=== PATIENT | male | born 1950 | race Caucasian/White ===

== ENCOUNTER 2025-03-06 05:47 | Observation (INO) | payer MEDICARE, SELFPAY ==
--- OUTSIDE RECORDS SUMMARY | 2024-09-16 08:15 | XMS_ITS ---
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 Name Role Phone Concetta ANN, Nicolas Primary Care Provider Adonis Link Unavailable [phone] Encounters Encounter Location Date Provider Diagnosis [facility] [address] [place] [address] 09/16/2024 Adonis Small Plan Of Treatment No Information Progress Notes * Leonides CARTER EDOB:1950 ( 74 yo M)Acc No.[id number]:09/16/2024 Progress Note Patient: Leonides DELEON Provider: Fred Small DPM :1950 A ge:73 Y S ex:Male Date:09/16/2024 Address:[address] [place] [address], [address] [place], [place] [id number] Pcp:Nicolas Hylton MD Subjective: * Chief Complaints: * * Medical History: Objective: * Vitals: Assessment: Plan: * Treatment: * Images: * The named appointment provid er may or may not be the originator of this progress note, and it is not deemed complete until electronically signed by the appointment provider. Sign off status: Pending * Provider: Fred Small DPM Date: 0 09/16/2024 Generated for Printi ng/Fafarhatg/eTransmitting on: 06:56 AM EST
[2025-03-06] VITALS (11 sets, daily range): BP systolic 106–158; BP diastolic 42–67; PULSE 59–69; RESP 12–18; TEMP 36.2–36.8; O2SAT 95–98; BMI 36.5
--- NOTE | ~2025-03-06 | XR_ITS ---
EXAMINATION: XR CHEST CLINICAL INFORMATION: Eval for edema COMPARISON: None available. TECHNIQUE: Frontal view of the chest was obtained. FINDINGS: No significant abnormality is noted involving the heart, lungs, mediastinum, bony thorax or soft tissues. Mild degenerative changes of the spine and shoulders. XR/XR chest 1V IMPRESSION: No evidence for acute disease in the chest. Electronically signed by: Luana Bazan MD 03/06/2025 12:05 PM DEBRA
--- NOTE | ~2025-03-06 | US_ITS ---
EXAMINATION: US TRIPLEX LOWER EXTREMITY, BILATERAL CLINICAL INFORMATION: Bilateral lower extremity pain and swelling COMPARISON: None available. TECHNIQUE: Color-flow triplex imaging with spectral analysis and compression Doppler were performed on the bilateral lower extremities. FINDINGS: Respiratory variation, normal compression and augmented flow are noted throughout the bilateral lower extremities. The visualized common femoral vein, superficial femoral vein, profunda femoral vein, popliteal vein and midcalf peroneal and posterior tibial venous segments show no evidence of deep venous thrombosis bilaterally. There is no Melendez's cyst. US/US venous duplex LE BI IMPRESSION: No evidence of deep venous thrombosis involving the bilateral lower extremities. Electronically signed by: Ned Ga MD 03/06/2025 09:51 AM EST
--- NOTE | ~2025-03-06 | CT_ITS ---
EXAMINATION: CT ABDOMEN PELVIS WITHOUT IV CONTRAST HISTORY: transaminitis COMPARISON: There are no prior studies available for comparison. TECHNIQUE: CT scan of the abdomen and pelvis was performed without contrast using standard departmental protocol. Coronal and sagittal reformatted images were generated and reviewed. This CT exam was performed with one or more of the following dose reduction techniques: automated exposure control, adjustment of the mA and/or kV according to patient size, use of iterative reconstruction technique. DLP: 1125 mGy-cm FINDINGS: LOWER CHEST: The visualized lung bases are clear. There is no pleural effusion. Widened esophageal hiatus containing fat and a small amount of fluid. CARDIOVASCULATURE: The heart is normal in size. There is no pericardial effusion. Coronary artery and aortic valve calcification. LIVER: Lobular contour of the liver and prominent caudate lobe and left lobe suggestive of some cirrhosis. Low-attenuation areas in the liver. There is a 7 x 8 cm low-attenuation round lesion high in the dome of right lobe of the liver segment 8/7 axial image 16 series 3 worrisome for mass. Other more ill-defined low-attenuation areas in the right lobe, largest segment 5/6 measuring 9 cm for example axial image 31 series 3. Question fatty infiltration versus mass. Recommend follow-up liver MRI. GALLBLADDER / BILE DUCTS: Gallstones. The gallbladder is otherwise unremarkable. There is no intra or extrahepatic biliary ductal dilatation. SPLEEN: The spleen is normal in size and has an unremarkable unenhanced appearance. PANCREAS: Fatty infiltration of the pancreas. ADRENAL GLANDS: Small left adrenal calcification. This is most likely related to old trauma or infection. The adrenal glands otherwise normal. No nodule.55 KIDNEYS/RETROPERITONEUM: Small nonobstructing 3 mm stone in the lower pole of the right kidney. Question tiny 1 mm nonobstructing stone in the lower pole of the left kidney. 1.5 and 1 cm low-attenuation lesions in the upper and lower pole left kidney and 1.5 cm low-attenuation lesion in the lower pole right kidney. These are incompletely characterized but probably represent cysts. LYMPH NODES small cardiophrenic angle or anterior diaphragmatic lymph nodes. Small periportal and portacaval lymph nodes. Small bilateral inguinal lymph nodes. No enlarged lymph nodes. VASCULATURE: Atherosclerotic disease. No aneurysm. MESENTERY/PERITONEUM: Moderate amount of ascites. STOMACH: Normal SMALL BOWEL: The small bowel is normal in caliber. COLON: Diverticulosis of the colon. APPENDIX: Normal. URINARY BLADDER/PELVIC ORGANS: The urinary bladder is unremarkable. Prostate gland does not appear enlarged. BONES / SOFT TISSUES: Mild subcutaneous edema. Degenerative changes of the spine and hips. CT/CT abdomen pelvis wo IV con IMPRESSION: Cirrhotic appearing liver, splenomegaly and moderate amount of ascites. Heterogeneous attenuation of the liver with several low-attenuation areas questionable masses versus fatty infiltration. Follow-up liver MRI recommended. Gallstones. 3 mm nonobstructing right renal stone and question tiny 1 mm nonobstructing left renal. Bilateral low-attenuation renal lesions not accurately characterized but may represent cysts. Diverticulosis of the colon. Electronically signed by: Luana Bazan MD 03/06/2025 03:06 PM DEBRA
--- NOTE | 2025-03-06 06:17 | ECG_ITS ---
Test Reason : edema Blood Pressure : */* mmHG Vent. Rate : 63 BPM Atrial Rate : 63 BPM P-R Int : 198 ms QRS Dur : 94 ms QT Int : 440 ms P-R-T Axes : 61 19 19 degrees QTcB Int : 450 ms Normal sinus rhythm Normal ECG When compared with ECG of 24-Jul-2004 15:16, Incomplete right bundle branch block is no longer Present Referred By: Astrid Scott Electronically Signed By: DORA NEGRO
--- NOTE | 2025-03-06 06:19 | ED.EXTPRO ---
HPI - Extremity Problem General Chief complaint: Extremity Problem Stated complaint: swelling in lower extremities Time Seen by Provider: 03/06/25 06:19 Source: patient and old records reviewed Mode of arrival: ambulatory Limitations: no limitations History of Present Illness ED Provider: JOYCE BROWN Narrative: 74-year-old male with past medical history of diabetes, hypertension, hyperlipidemia, GERD who presents with complaint of bilateral swelling of both legs that started about 5-7 days ago. He states it started after he was hanging his legs down and sitting for a while giving a dog a bath. He denies any new chest pain, shortness of breath, orthopnea. Denies any trauma to the legs. States he has never had compression stockings. He denies any changes in urinary habits. He states he lives alone but he is able to care for himself. He is using a cane to walk. States he has not seen his doctor in 1 year. He complains a chronic lump on the left chest wall that he does not report has grown. MD Complaint: other (Leg swelling) Onset (ago): week(s) (1) Pain Consistency: constant Location: left, right and lower extremity Quality: aching Radiation: none Relieving factors: immobilization Exacerbating factors: weight bearing Associated symptoms: denies other symptoms Related Data Home Medications ?Medication ?Instructions ?Recorded ?Confirmed amlodipine 10 mg tablet 10 mg PO DAILY 03/06/25 03/06/25 aspirin 81 mg tablet 81 mg PO DAILY 03/06/25 03/06/25 fluoxetine 20 mg capsule 60 mg PO DAILY 03/06/25 03/06/25 gabapentin 300 mg capsule 900 mg PO BEDTIME 03/06/25 03/06/25 glipizide 10 mg tablet, extended 20 mg PO DAILY 03/06/25 03/06/25 release 24 hr hydrochlorothiazide 25 mg tablet 25 mg PO DAILY 03/06/25 03/06/25 insulin NPH isoph U-100 human 100 30 unit subcut DAILY@1800 03/06/25 03/06/25 unit/mL subcutaneous suspension (Novolin N NPH U-100 Insulin isophane) insulin NPH isoph U-100 human 100 60 unit subcut DAILY 03/06/25 03/06/25 unit/mL subcutaneous suspension (Novolin N NPH U-100 Insulin isophane) losartan 100 mg tablet 100 mg PO DAILY 03/06/25 03/06/25 metformin 1,000 mg tablet 1,000 mg PO BID 03/06/25 03/06/25 metoprolol succinate 25 mg 25 mg PO DAILY 03/06/25 03/06/25 tablet,extended release 24 hr omeprazole 40 mg capsule,delayed 40 mg PO DAILY 03/06/25 03/06/25 release pravastatin 40 mg tablet 40 mg PO DAILY 03/06/25 03/06/25 Allergies Allergy/AdvReac Type Severity Reaction Status Date / Time No Known Allergies Allergy Verified 03/06/25 05:59 Review of Systems Review of Systems: Yes all other systems are reviewed and are negative [facility] Past Medical History Attestation statement: The following information was validated with the patient. Source: old records reviewed Medical History Diabetes Hyperlipidemia GERD (gastroesophageal reflux disease) HTN (hypertension) Social History Social History Alcohol intake: former Smoked in Last 30 Days: No Use of substances other than those prescribed or required for medical reasons: No Advance Directives: No Advance Directives Information Provided: Yes Do you have a plan to hurt others: No Plan Physical Exam Vital Signs: Vital Signs: Last Vital Signs Temp 97.8 F 03/06/25 07:57 Pulse 61 03/06/25 07:57 Resp 14 03/06/25 07:57 BP 110/50 L 03/06/25 10:00 Pulse Ox 95 03/06/25 07:57 O2 Del Method Room Air 03/06/25 07:57 BMI result Body Mass Index 36.5 Appearance: Alert. Oriented X3. No acute distress. Lying flat in no distress Eyes: Pupils equal, round and reactive to light. ENT: Pharynx normal. Neck: Normal inspection. Neck supple. CVS: Normal heart rate and rhythm. Pulses normal. Respiratory: No respiratory distress. Breath sounds normal. Abdomen: Soft and nontender. Skin: Skin warm and dry. Normal skin color. Normal skin turgor. Extremities: No signs of cellulitis he has distal pulses intact but he has 1+ pitting edema of bilateral lower extremities. The compartments are soft and compressible. Neuro: Oriented X 3. No motor deficit. No sensory deficit. CN2-12 intact Course Course Course Narrative: 6:49 AM 03/06/2025 (JOYCE LOTT): Requesting records from [facility] 9:45 AM 03/06/2025 (JOYCE LOTT): Patient now states he has not had blood the last time it was done at the [facility] as an outpatient Reevaluation(s) Reevaluation #1: 10:41 AM 03/06/2025 (JOYCE LOTT): Labs from 2022 and 2023 show hemoglobin of 14.4 his creatinine has been 1.3 I am repeating his labs at this time see if there is any further drop he denies any GI bleed symptoms. Medical Decision Making Medical Decision Making [facility] Narrative: 74-year-old male with past medical history of diabetes, hypertension, hyperlipidemia, GERD who presents with complaint of lower extremity edema but he has no associated CHF symptoms such as orthopnea or shortness of breath. Has pulses intact and has no signs of infection on exam. His compartments are soft and compressible. At this time we are going to obtain EKG, basic labs, DVT study. If negative we will hold hydrochlorothiazide started on Lasix x3 days in order compression stockings. He is aware of the plan. States he feels he can care for himself at home. Differential Diagnosis Differential Diagnoses: The differential diagnosis associated with the presentation includes DVT, CHF, dependent edema, side effects of amlodipine Admission/Observation Consideration of admission/observation: Escalation of care including admission/observation considered His hemoglobin has not dropped but he definitely has AQUILINO from prior labs his BNP is elevated I am obtaining chest x-ray I suspect he probably has potential for volume overload given his edema he is on any diuretics at home anticipate he will get admitted for diuresis I plan to start on IV Lasix Lab Data [facility] Lab Attestation statement: I reviewed the patient's lab results. 03/06/25 11:18 03/06/25 11:18 Labs: Lab Results 03/06/25 03/06/25 Range/Units 06:15 11:18 WBC 5.5 6.3 (4.8-10.8) X10*3/uL RBC 3.40 L 3.65 L (4.60-5.80) X10*6/uL Hgb 9.9 L 10.6 L (14.0-18.0) g/dl Hct 32.4 L 35.0 L (42.0-52.0) % MCV 95.3 95.9 (80.0-98.0) fL MCH 29.1 29.0 (27.0-33.0) pg MCHC 30.6 L 30.3 L (31.0-36.0) g/dl RDW 16.2 H 16.3 H (11.0-16.0) % Plt Count 221 239 (160-400) X10*3/uL MPV 10.0 10.1 (9.4-12.4) fL Immature Gran % (Auto) 0.4 (0.0-0.4) % Neut % (Auto) 80.3 H (45-73) % Lymph % (Auto) 10.4 L (20-40) % [place] % (Auto) 8.4 (2-11) % Eos % (Auto) 0.0 (0-4) % Baso % (Auto) 0.5 (0-2) % Lymph # (Auto) 0.6 L (1.2-4.9) X10*3/uL [place] # (Auto) 0.5 (0.1-1.2) X10*3/uL Eos # (Auto) 0.0 (0.0-0.4) X10*3/uL Baso # (Auto) 0.0 (0.0-0.2) X10*3/uL Abs Immat Gran (auto) 0.02 (0.00-0.03) X10*3/uL Absolute Neuts (auto) 4.4 (2.0-8.3) x10*3/uL Absolute Nucleated RBC 0.000 0.000 (0.0-0.012) X10*3/uL Nucleated RBC % (auto) 0.0 0.0 (0.0-0.2) /100WBC Sodium 141 (135-145) mmol/L Potassium 5.0 (3.3-5.1) mmol/L Chloride 108 (96-108) mmol/L Carbon Dioxide 26 (22-29) mmol/L Anion Gap 12 (12-20) BUN 22 H (9-16) mg/dL Creatinine 1.74 H 1.80 H (0.5-1.4) mg/dL Estim Creat Clear Calc 48.8 47.1 Estimated GFR 39 37 Random Glucose 117 H (60-115) mg/dL Calcium 8.6 (8.4-10.2) mg/dL Magnesium 2.0 (1.6-2.6) mg/dL Total Bilirubin 1.1 H (0.0-1.0) mg/dL AST 127 H (5-37) U/L ALT 43 H (0-40) U/L Alkaline Phosphatase 463 H (39-117) U/L NT-Pro-B Natriuret Pep 881.5 H (<300) pg/mL Total Protein 7.1 (6.5-8.0) g/dL Albumin 3.3 L (3.5-5.0) g/dL TSH 5.07 H (0.32-4.0) uIU/mL Free T4 1.01 (0.71-1.85) ng/dL Independent Interpretation I performed an independent interpretation of an: EKG, Plain X-Ray and Ultrasound (No DVT) Interpretation: Rate: 63 Rhythm: Normal sinus rhythm [place]: Normal Normal P waves. Normal KEY. Normal QRS complex. ST T wave : Normal no ST-elevation qTC: 450 prior studies: No acute ischemia The study has been interpreted contemporaneously by me. . Radiology Impression Discussion of test interpretation with radiology: I have reviewed the radiologist's reading. External Record Review External record reviewed: Outpatient record Prescription Management I considered prescription management with: Other Discharge Plan Discharge Clinical Impression: Anemia, Acute kidney injury superimposed on CKD, Leg edema Patient Disposition: Admitted As Inpatient Print Language: Turkmen
[2025-03-06 06:21] LABS: MANUAL DIFF FLAG NO
[2025-03-06 06:23] LABS: Hematocrit 32.4 % (42.0-52.0); Hemoglobin 9.9 g/dl (14.0-18.0); Imm Gran Abs Auto 0.02 X10*3/uL (0.00-0.03); Imm Gran Pct Auto 0.4 % (0.0-0.4); Lymphocytes Absolute Auto 0.6 X10*3/uL (1.2-4.9); Mean Corpuscular HGB Conc 30.6 g/dl (31.0-36.0); Mean Corpuscular Hemoglobin 29.1 pg (27.0-33.0); Mean Corpuscular Volume 95.3 fL (80.0-98.0); NRBC Abs Auto 0.000 X10*3/uL (0.0-0.012); NRBC Pct Auto 0.0 /100WBC (0.0-0.2); Platelet Count 221 X10*3/uL (160-400); Red Blood Count 3.40 X10*6/uL (4.60-5.80); White Blood Count 5.5 X10*3/uL (4.8-10.8)
[2025-03-06 06:45] LABS: Alanine Aminotransferase 43 U/L (0-40); Albumin Level 3.3 g/dL (3.5-5.0); Alkaline Phosphatase 463 U/L (39-117); Anion Gap 12 (12-20); Aspartate Amino Transferase 127 U/L (5-37); Blood Urea Nitrogen 22 mg/dL (9-16); Calcium 8.6 mg/dL (8.4-10.2); Carbon Dioxide 26 mmol/L (22-29); Chloride 108 mmol/L (96-108); Creatinine Clr Calc Pharmacy 48.8; Estimated Glomerular Filt Rate 39; Magnesium 2.0 mg/dL (1.6-2.6); Potassium 5.0 mmol/L (3.3-5.1); Sodium 141 mmol/L (135-145); Total Protein 7.1 g/dL (6.5-8.0)
[2025-03-06 06:48] LABS: NT Pro B Type Natriuretic Pept 881.5 pg/mL (<300)
--- OUTSIDE RECORDS SUMMARY | 2025-03-06 06:57 | XMS_ITS | Patient Health Record ---
Author Organization 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 Name Role Phone Nicolas Hylton MD Primary Care Provider Adonis Link Unavailable [phone] Allergies Allergen (clinical drug ingredient) Drug/Non Drug Allergy documented on EMR Reaction Allergy Type Onset Date Status Seasonale Unknown Drug Allergy Active Reason For Referral No Information Medications Medication SIG (Take, Route, Frequency, Duration) Notes Start Date End Date Status Ammonium Lactate 12 % 1 application Exte rnally to affected areas of dry skin to feet except for between the toes Twice a day; Duration: 30 days Active Lantus 86 as directed Active metFORMIN HCl 500 MG 1 tablet with a horace l Orally Once a day; Duration: 30 day(s) Active Metoprolol Succinate 25 MG 1 capsule Orally Once a day; Duration: 30 day(s) Active Omeprazole 20 MG 1 capsule 30 minutes before morning meal Orally Once a day; Duration: 30 day(s) Active CeleXA Active Lisinopril 20 MG 1 tablet Orally Once a day; Duration: 30 day(s) Not-Virgilio ing FLUoxetine HCl 20 MG 1 tablet Orally Onc e a day; Duration: 30 day(s) Active Gabapentin 300 MG 1 capsule Orally Onc e a day; Duration: 30 day(s) Active glipiZIDE 10 MG 1 tablet 30 minutes before breakfast Orally Once a day; Duration: 30 day(s) Active Pravastatin Sodium 40 MG 1 tablet Orally Once a day; Duration: 30 day(s) Active amLODIPine Besylate 10 MG 1 tablet Orally Once a day 10mg Active Colcrys 0.6 MG 1 tablet Orally Up t o Four times a day; Duration: 5 days 08/21/2023 Active Rickey Aspirin EC Low Dose 81 MG 1 tablet Orally Once a day; Duration: 30 day(s) Active Immunizations Vaccine Route Administration Date Status Comme nts Influenza Unknown 03/08/2019 Administered Influenza Unknown 12/08/2019 Administered Influenza Unknown 01/07/2021 Administered Influenza Unknown 06/07/2022 Administered Influenza Unknown 12/08/2023 Administered COVID-19 Pfizer BioNTech Vaccine Unknown 01/07/2022 Administered 2020 unsure dates Social History Tobacco Use: Social History Observation Description Date Details (start date - stop date) Never Smoker NA - NA Tobacco use other than smoking: Question Answer Notes Are you an other tobacco user? No Tobacco Control (Standard) Question Answer Notes Tobacco use: Nonsmoker Additional Findings: Tobacco non-user Current no nsmoker AUDIT-C (Standard) Question Answer Notes Did you have a drink containing alcohol in the p ast year? No Points 0 Interpretation Negative Problems Problem Type SNOMED Code ICD Code Onset Dates Problem Status W/U Status Risk Notes Problem Acquired hammer toe of right foot (694708245362276 5) Other hammer toe(s) (acquired), right foot (M20.41) Active confirmed Problem Acquired hammer toe of left foot (175995341590047 3) Other hammer toe(s) (acquired), left foot (M20.42) Active confirmed Problem Polyneuropathy due to type 2 diabetes mellitus (200181250) Type 2 diabetes mellitus with diabetic polyneuropathy (E11.42) Active confirmed Problem Gout (50051799) Gout of right foot (M10.9) Active confirmed Rx drug management (4) Vital Signs Blood pressure diastolic 65 mm Hg 12/09/2024 Height 69.5 in 12/09/2024 Blood pressure systolic 130 mm Hg 12/09/2024 Weight 250 lbs 12/09/2024 BMI 36.39 kg/m2 12/09/2024 Procedures Procedure Date Ordered Date Performed Result Body Sit e 31800-BXWXIUD NAIL, 6 OR MORE 06/03/2024 N/A 77575-WBIZ SKIN LESIONS, OVER 4 06/03/2024 N/A 83233-IVTYVQI NAIL, 6 OR MORE 12/09/2024 N/A 36665-RIOA SKIN LESIONS, OVER 4 12/09/2024 N/A Encounters Encounter Location Date Provider Diagnosis [address] [address] 06/03/2024 Adonis Small Type 2 diabetes mellitus with diabetic polyneuropathy E11.42 ; Tinea unguium B35.1 ; Other hammer toe(s) (acquired), right foot M20.41 ; Other hammer toe(s) (acquired), left foot M20.42 and Xerosis of skin L85.[address] [address] 12/09/2024 Adonis Small Type 2 diabetes mellitus with diabetic polyneuropathy E11.42 ; Tinea unguium B35.1 and Xerosis of skin L85.[address] [address] 09/16/2024 Adonis Small [address] [address] 09/20/2024 Adonis Small Assessments Encounter Date Diagnosis (ICD Code) Assessment Notes Treatment Notes Treatment Clinical Notes Section Notes 06/03/2024 Type 2 diabetes mellitus with diabetic polyneuropathy (ICD-10 - E11.42) 06/03/2024 Tinea unguium (ICD-10 - B35.1) 12/09/2024 Type 2 diabetes mellitus with diabetic polyneuropathy (ICD-10 - E11.42) 12/09/2024 Tinea unguium (ICD-10 - B35.1) 12/09/2024 Xerosis of skin (ICD-10 - L85.3) 06/03/2024 Other hammer toe(s) (acquired), right foot (ICD-10 - M20.41) Patient Educated with: DIABETIC FOOT CARE INSTRUCTIONS. pdf (DIABETIC FOOT CARE INSTRUCTIONS. pdf) 06/03/2024 Other hammer toe(s) (acquired), left foot (ICD-10 - M20.42) 06/03/2024 Xerosis of skin (ICD-10 - L85.3) Plan Of Treatment Pending Test Test Name Order Date X ray : Foot, right 3V 08/21/2023 25570-WXIOMPQ NAIL, 6 OR MORE 11/20/2023 86695-VSULZQH NAIL, 6 OR MORE 02/19/2024 90923-IMHEUQQ NAIL, 6 OR MORE 06/03/2024 25029-PBNUHWE NAIL, 6 OR MORE 12/09/2024 54675-FRXNLIC NAIL, 6 OR MORE 05/13/2019 35359-JZMPIYX NAIL, 6 OR MORE 08/12/2019 17771-TKVEAHG NAIL, 6 OR MORE 12/02/2019 12677-VSOCEYA NAIL, 6 OR MORE 03/13/2020 82183-INGZDCP NAIL, 6 OR MORE 06/12/2020 37476-BAGUAVU NAIL, 6 OR MORE 09/11/2020 27605-SAPSDUX NAIL, 6 OR MORE 12/11/2020 24799-HMAQUVJ NAIL, 6 OR MORE 03/15/2021 37463-GPPGNIQ NAIL, 6 OR MORE 06/14/2021 92964-LRUKTPA NAIL, 6 OR MORE 09/17/2021 60206-SVZOVZY NAIL, 6 OR MORE 03/18/2022 22942-NKHXOCS NAIL, 6 OR MORE 06/17/2022 12739-SIULHWQ NAIL, 6 OR MORE 09/12/2022 12100-JBIXYJT NAIL, 6 OR MORE 12/05/2022 53633-OGGVFSR NAIL, 6 OR MORE 04/24/2023 03749-PIBELIJ NAIL, 6 OR MORE 08/21/2023 11352-Cwgqqesg Plate 12/05/2022 07918-Qkmtrbtd Plate 03/18/2022 73027-Uueokprw Plate 03/13/2020 07707-Znjnmhiw Plate 09/12/2022 53744-Glxohfhr Plate 11/20/2023 40369-Qdkcjwmw Plate 08/21/2023 06869-VFNP SKIN LESIONS, OVER 4 11/20/19 24 34003-WKGO SKIN LESIONS, OVER 4 06/04/19 25 37073-OLQH SKIN LESIONS, OVER 4 02/19/20 24 73449-BFLL SKIN LESIONS, OVER 4 12/10/19 88975-MZWN SKIN LESIONS, OVER 4 03/13/19 21 62438-NKAS SKIN LESIONS, OVER 4 12/02/19 20 41284-BIAU SKIN LESIONS, OVER 4 08/12/19 20 71599-OTNV SKIN LESIONS, OVER 4 05/13/19 20 41228-XCZC SKIN LESIONS, OVER 4 03/15/19 22 51464-NXPI SKIN LESIONS, OVER 4 12/12/19 21 14795-AVKF SKIN LESIONS, OVER 4 09/12/19 21 92837-VZPK SKIN LESIONS, OVER 4 06/13/19 21 32297-JJPH SKIN LESIONS, OVER 4 03/18/19 23 33058-VVCP SKIN LESIONS, OVER 4 06/18/19 23 94456-FWLG SKIN LESIONS, OVER 4 09/18/19 22 32408-GGEA SKIN LESIONS, OVER 4 06/15/19 22 92213-NKDV SKIN LESIONS, OVER 4 12/06/19 23 86062-UQYY SKIN LESIONS, OVER 4 09/13/19 23 23891-WTIG SKIN LESIONS, OVER 4 08/21/19 24 39886-ZAJS SKIN LESIONS, OVER 4 04/24/19 24 Insurance Providers Payer Name Payer Address Payer Phone Subscriber Number Group Number Insured Name Patient Relationship to Insured Coverage Start Date Coverage End Date Medicare National [employer] [address] [facility] [place] [address] [id number] Leonides Carter Self - patient is the insured [employer] [address] [place] [address] [phone] [id number] Leonides Carter Self - patient is the insured Medical (General) History Medical History History ICD Code Arthritis Depression type II diabetes High blood pressure CAD Reflux Sciatica Herniated disc x3 Gout Surgical History Surgery Date(Month/Year) colonoscopy x3 endoscopy
[2025-03-06 07:36] LABS: Free T4 (Free Thyroxine) 1.01 ng/dL (0.71-1.85)
--- NOTE | 2025-03-06 11:09 | PHA.MEDREC ---
Pharmacy Consult ? Medication Reconciliation Pharmacy has completed the medication reconciliation. Utilized list patient came with from [facility] to confirm medications, matches pharmacy claims.
[2025-03-06 11:28] LABS: Hematocrit 35.0 % (42.0-52.0); Hemoglobin 10.6 g/dl (14.0-18.0); Mean Corpuscular HGB Conc 30.3 g/dl (31.0-36.0); Mean Corpuscular Hemoglobin 29.0 pg (27.0-33.0); Mean Corpuscular Volume 95.9 fL (80.0-98.0); NRBC Abs Auto 0.000 X10*3/uL (0.0-0.012); NRBC Pct Auto 0.0 /100WBC (0.0-0.2); Platelet Count 239 X10*3/uL (160-400); Red Blood Count 3.65 X10*6/uL (4.60-5.80); White Blood Count 6.3 X10*3/uL (4.8-10.8)
[2025-03-06 11:41] LABS: Creatinine Clr Calc Pharmacy 47.1; Estimated Glomerular Filt Rate 37
[2025-03-06] MEDS: Furosemide 20 MG/2 ML VIAL IVPUSH ×2 (12:16→20:00)
--- NOTE | 2025-03-06 12:29 | PM.IMHP ---
History of Present Illness Date of Service: 03/06/25 Chief Complaint: Leg swelling 74-year-old man with history of hypertension presented to the ER with complaints of bilateral lower extremity edema over the last week. He reports that this comes and goes and he sometimes wears Adrian stockings. He reports that he does have high sodium rich diet. He denied chest pain, shortness breath, nausea, vomiting, diarrhea. He reports that it started after he was sitting with his legs hanging trying to give his dog a bath. He also reports that he generally sits with his legs hanging down and does not elevate them enough. In the ER. Venous Doppler ultrasound was negative for DVT. Chest x-ray was negative for consolidation or effusion. Patient received a dose of IV Lasix in the ED. He will be placed on observation for management of bilateral lower extremity edema Review of Systems Review of Systems: Denies any recent fever chills or decrease in appetite respiratory denies any shortness of breath or cough cardiovascular see HPI gastrointestinal denies any dysphagia abdominal pain nausea vomiting or diarrhea genitourinary denies any dysuria frequency or hematuria musculoskeletal denies any joint pain or swelling neuropsych denies any weakness or seizures all other systems reviewed are negative [facility] Medical History (Updated 03/06/25 @ 12:31 by Celestina Galvan NP) Subclinical hypothyroidism Obstructive sleep apnea Hiatal hernia Lumbar radiculopathy Diabetic neuropathy Depression Barretts esophagus Aortic stenosis Diabetes Hyperlipidemia GERD (gastroesophageal reflux disease) HTN (hypertension) Pertinent family history: Colon cancer Social History Alcohol intake: former Smoked in Last 30 Days: No Use of substances other than those prescribed or required for medical reasons: No Advance Directives: No Advance Directives Information Provided: Yes Do you have a plan to hurt others: No Plan Meds Allergies Allergy/AdvReac Type Severity Reaction Status Date / Time No Known Allergies Allergy Verified 03/06/25 05:59 Home Medications ?Medication ?Instructions ?Recorded ?Confirmed ?Last Taken ?Type amlodipine 10 mg tablet 10 mg PO DAILY 03/06/25 03/06/25 Unknown History aspirin 81 mg tablet 81 mg PO DAILY 03/06/25 03/06/25 Unknown History fluoxetine 20 mg capsule 60 mg PO DAILY 03/06/25 03/06/25 Unknown History gabapentin 300 mg capsule 900 mg PO BEDTIME 03/06/25 03/06/25 Unknown History glipizide 10 mg tablet, extended 20 mg PO DAILY 03/06/25 03/06/25 Unknown History release 24 hr hydrochlorothiazide 25 mg tablet 25 mg PO DAILY 03/06/25 03/06/25 Unknown History insulin NPH isoph U-100 human 100 30 unit subcut DAILY@1800 03/06/25 03/06/25 Unknown History unit/mL subcutaneous suspension (Novolin N NPH U-100 Insulin isophane) insulin NPH isoph U-100 human 100 60 unit subcut DAILY 03/06/25 03/06/25 Unknown History unit/mL subcutaneous suspension (Novolin N NPH U-100 Insulin isophane) losartan 100 mg tablet 100 mg PO DAILY 03/06/25 03/06/25 Unknown History metformin 1,000 mg tablet 1,000 mg PO BID 03/06/25 03/06/25 Unknown History metoprolol succinate 25 mg 25 mg PO DAILY 03/06/25 03/06/25 Unknown History tablet,extended release 24 hr omeprazole 40 mg capsule,delayed 40 mg PO DAILY 03/06/25 03/06/25 Unknown History release pravastatin 40 mg tablet 40 mg PO DAILY 03/06/25 03/06/25 Unknown History Physical Exam Vital Signs and Narrative: Vital Signs: Last Vital Signs Temp 98 F 03/06/25 12:15 Pulse 60 03/06/25 12:15 Resp 18 03/06/25 12:15 BP 131/56 L 03/06/25 12:16 Pulse Ox 96 03/06/25 12:15 O2 Del Method Room Air 03/06/25 12:15 BMI result Body Mass Index 36.5 Appearing in no acute distress head is normocephalic atraumatic eyes pupils are PERRLA sclera is anicteric mouth throat mucous membranes are intact and moist neck is supple no lymphadenopathy, no JVD noted lung sounds are clear to auscultation heart regular rate rhythm, clear S1, S2 positive bowel sounds, abdomen is soft, nontender neuro patient is alert x3, no focal deficits Nonpitting bilateral lower extremity edema Results Labs 03/06/25 11:18 03/06/25 11:18 Labs: Laboratory Results - last 24 hr 03/06/25 03/06/25 06:15 11:18 MCV 95.3 95.9 MCH 29.1 29.0 MCHC 30.6 L 30.3 L RDW 16.2 H 16.3 H Plt Count 221 239 MPV 10.0 10.1 Immature Gran % (Auto) 0.4 Neut % (Auto) 80.3 H Lymph % (Auto) 10.4 L Weber % (Auto) 8.4 Eos % (Auto) 0.0 Baso % (Auto) 0.5 Lymph # (Auto) 0.6 L Weber # (Auto) 0.5 Eos # (Auto) 0.0 Baso # (Auto) 0.0 Abs Immat Gran (auto) 0.02 Absolute Neuts (auto) 4.4 Absolute Nucleated RBC 0.000 0.000 Nucleated RBC % (auto) 0.0 0.0 Anion Gap 12 Estim Creat Clear Calc 48.8 47.1 Estimated GFR 39 37 Random Glucose 117 H Calcium 8.6 Magnesium 2.0 Total Bilirubin 1.1 H AST 127 H ALT 43 H Alkaline Phosphatase 463 H NT-Pro-B Natriuret Pep 881.5 H Total Protein 7.1 Albumin 3.3 L TSH 5.07 H Free T4 1.01 Imaging Radiologist's Impressions: Impressions Venous Duplex 03/06/25 08:57 IMPRESSION: No evidence of deep venous thrombosis involving the bilateral lower extremities. Electronically signed by: Ned Ga MD 03/06/2025 09:51 AM EST RP Chest X-Ray 03/06/25 12:01 IMPRESSION: No evidence for acute disease in the chest. Electronically signed by: Luana Bazan MD 03/06/2025 12:05 PM EST RP Assessment and Plan (1) Acute kidney injury superimposed on CKD: Status: Acute Plan 74 year old man admitted with AQUILINO, transaminitis and lower extremity edema of unknown etiology. Lower extremity edema BNP 881 No obvious overt heart failure Last echocardiogram at [facility] in April of 2023 shows EF of 65-75% with no regional wall motion abnormality Albumin 3.3 Start IV Lasix Check UA for protein Check echocardiogram Hold amlodipine as calcium channel blockers can cause lower extremity edema AQUILINO on CKD stage 3 Mildly elevated from baseline Transaminitis Possibly secondary to fluid overload Follow LFTs Check abdominal CT scan Diabetes mellitus type 2 Sliding scale, ADA diet Subclinical hypothyroidism Normal free T4 Normocytic anemia H&H similar to previous no need for blood transfusion at this time Obesity class 2. BMI 36.5 Discussed importance of weight management as this may be contributing to worsening of other comorbidities Obstructive sleep apnea cpap DVT prophylaxis with Lovenox Full code Quality Stroke Does the patient have a stroke diagnosis?: No VTE Prior VTE?: No VTE Risk Level:: Medical - moderate - high VTE Device Contraindication: Treatment Not Indicated VTE Drug Contraindication: N/A - Med Ordered
[2025-03-06 13:57] LABS: Appearance Urine Clear; Glucose Urine UA Negative (Negative); PH 5.5 (5.0-9.0); Specific Gravity - Urine <= 1.005 (1.005-1.025)
[2025-03-06 16:25] LABS: Glucose, Whole Blood 104 mg/dL (60-115)
--- NOTE | 2025-03-06 17:05 | HO.NURTONUR ---
74 y/o male presented to ED for bilateral lower extremity edema x1 week, Pt apparently was washing his dog and was not able to get back up, US of LE was negative for DVT's, aaox4, nad, pending bed placement, pt takes Lasix at home and has a hx of HTN
--- NOTE | 2025-03-06 17:42 | PC.NURSE ---
Pt able to ambulate with a steady gait to the restroom using his cane
[2025-03-06 19:50] LABS: Glucose, Whole Blood 162 mg/dL (60-115)
[2025-03-06] MEDS: Flu Vacc TS2025-26(6mo up)/PF 0.5 ML SYRINGE IM (19:57)
[2025-03-06] MEDS: 0.9 % Sodium Chloride Flush 3 ML SYRINGE IVFLUSH (20:01)
--- NOTE | 2025-03-06 21:25 | HO.SKINPHOTO ---
Location:coccyx Category:PI Stage: Length: Width: Depth: cm Location: Category: Stage: Length: Width: Depth: cm Location: Category: Stage: Length: Width: Depth: cm Location: Category: Stage: Length: Width: Depth: cm Location: Category: Stage: Length: Width: Depth: cm Location: Category: Stage: Length: Width: Depth: cm
[2025-03-06 21:41] LABS: NT Pro B Type Natriuretic Pept 910.6 pg/mL (<300)
[2025-03-07] VITALS: BP 122/66; PULSE 66; RESP 18; TEMP 36.4; O2SAT 96
[2025-03-07 04:00] VITALS: BP 128/74; PULSE 65; RESP 18; TEMP 36.3; O2SAT 95
--- NOTE | 2025-03-07 07:00 | CA_ITS ---
Transthoracic Echocardiogram Patient (Last, First, Middle): Leonides Carter, Gender: Male Date of : 1950 Age: 74 Procedure Date: 03/07/2025 Procedure Type: Transthoracic Echocardiogram Location: S3E Height: 177.8 cm Weight: 115.21 kg BSA: 2.31 m2 Heart Rate: 70 bpm BP: 128 / 74 mmHg Supervisor Train Operations: DAPHNE Referring MD: Celestina Galvan NP Symptoms: leg edema Study Quality: Adequate w contrast ECG Rhythm: Sinus Conclusions: - The left ventricular systolic function is hyperdynamic. The visually estimated ejection fraction is >70%. - There is moderate aortic valve stenosis. Findings Procedure Information Contrast agent, definity, is being given per protocol without apparent complications. Left Ventricle Normal left ventricular cavity size. There is mildly increased left ventricular wall thickness. The left ventricular systolic function is hyperdynamic. The visually estimated ejection fraction is >70%. There is no evidence of regional wall motion abnormalities. Diastolic function is normal for age. Right Ventricle Normal right ventricular cavity size and systolic function. Atria The left atrium is mildly dilated. The right atrium is normal in size. Aortic Valve There is moderate calcification of the aortic valve. There is moderate aortic valve stenosis. The peak aortic velocity is 3.59 m/s with a calculated peak gradient of 52 mmHg. The mean gradient is 29 mmHg. The aortic valve area is 1.36 cm2. There is no aortic valve regurgitation. Mitral Valve There is mild mitral annular calcification. There is no mitral valve regurgitation. There is no mitral valve stenosis. Pulmonic Valve The pulmonic valve is likely normal. Tricuspid Valve There is trace tricuspid valve regurgitation. Tricuspid regurgitation envelope is inadequate for calculation of right ventricular systolic pressure. Great Vessels The asc aorta and aortic arch are normal in size. Venous The inferior vena cava is collapsed, consistent with reduced intravascular volume. Pericardium/Pleural There is no evidence of pericardial effusion. Prior Study Comparison No prior study available for comparison. Measurements 2D Linear Measurements IVSd: 0.97 0.6-0.9/0.6-1.0 cm LVIDd: 5.05 3.9-5.3/4.2-5.9 cm LVIDd Index: 2.19 2.4-3.2/2.2-3.1 cm/m2 LVIDs: 2.01 2.0-3.6 cm LVPWd: 1.22 0.7-1.1 cm LA Diam: 4.40 2.7-3.8/3.0-4.0 cm LAIDs Index: 1.90 1.5-2.3 cm/m2 LV Mass: 259.93 67-162/88-224 g LV Mass Index: 112.52 43-95/49-115 g/m2 LVOT Diam: 2.00 3.0+(-)1.3 cm 2D Systolic Function EF 4C: 70.40 >55% EF 2C: 81.30 >55% EF BiP: 75.60 >55% Mitral Valve MV Pk E: 0.87 MV PK A: 0.97 MV Decel Time: 281.00 E/A: 0.90 E'Lateral: 7.40 E'Medial: 7.29 E/E' Med: 12.00 E/E' Lat: 11.80 PHT: 82.00 MVA PHT: 2.68 Decel Fallon: 3.11 Aortic Valve AoV Pk Sherif: 3.59 AoV Mn Sherif: 2.55 AoV VTI: 0.79 AoV Pk Grad: 52.00 Aov Mn Grad: 29.00 VERNON Cont.VTI: 1.36 LVOT LVOT Pk Sherif: 1.58 LVOT Mn Sherif: 1.12 LVOT VTI: 0.34 LVOT Pk Grad: 10.00 LVOT Mn Grad: 6.00 LVOT Diam: 2.00 LVOT Area: 3.14 Diastolic Function MV Pk E: 0.87 MV Pk A: 0.97 E/A: 0.90 E'Medial: 7.29 E/E' Med: 12.00 E' Laterial: 7.40 E/E' Lat: 11.80 Right Ventricle TAPSE (mm): 36.10 TVS' Sherif: 14.80 Great Vessels Aorta Sinus of Valsalva: 3.20 2.0-3.5 cm Ao Asc: 3.30 2.1-3.4 cm Ao Arch: 3.30 Pulmonary Veins Pulm Vein S/D 1.20 Pulmonary Valve PV Pk Sherif: 1.77 Peak PV Grad: 13.00 Updated in Other Vendor System with Status of Final Ayaz Zee MD electronically signed on 03/07/2025 11:51:24 AM with status of Final
[2025-03-07 07:20] LABS: Hematocrit 30.5 % (42.0-52.0); Hemoglobin 9.5 g/dl (14.0-18.0); Mean Corpuscular HGB Conc 31.1 g/dl (31.0-36.0); Mean Corpuscular Hemoglobin 29.4 pg (27.0-33.0); Mean Corpuscular Volume 94.4 fL (80.0-98.0); NRBC Abs Auto 0.000 X10*3/uL (0.0-0.012); NRBC Pct Auto 0.0 /100WBC (0.0-0.2); Platelet Count 229 X10*3/uL (160-400); Red Blood Count 3.23 X10*6/uL (4.60-5.80); White Blood Count 4.9 X10*3/uL (4.8-10.8)
[2025-03-07 07:44] LABS: Alanine Aminotransferase 33 U/L (0-40); Albumin Level 3.0 g/dL (3.5-5.0); Alkaline Phosphatase 416 U/L (39-117); Anion Gap 10 (12-20); Aspartate Amino Transferase 116 U/L (5-37); Blood Urea Nitrogen 22 mg/dL (9-16); Calcium 8.6 mg/dL (8.4-10.2); Carbon Dioxide 29 mmol/L (22-29); Chloride 105 mmol/L (96-108); Creatinine Clr Calc Pharmacy 46.6; Estimated Glomerular Filt Rate 37; Potassium 4.4 mmol/L (3.3-5.1); Sodium 140 mmol/L (135-145); Total Protein 6.8 g/dL (6.5-8.0)
[2025-03-07 08:00] VITALS: BP 140/65; PULSE 64; RESP 16; TEMP 37.2; O2SAT 95
[2025-03-07] MEDS: 0.9 % Sodium Chloride Flush 3 ML SYRINGE IVFLUSH (08:22)
[2025-03-07 08:23] VITALS: BP 140/65; PULSE 64
[2025-03-07] MEDS: Metoprolol Succinate ER 25 MG TAB.ER.24H PO (08:23)
[2025-03-07] MEDS: Furosemide 20 MG/2 ML VIAL IVPUSH (08:23)
[2025-03-07 08:42] LABS: Glucose, Whole Blood 105 mg/dL (60-115)
--- NOTE | 2025-03-07 09:57 | HO.WOUND ---
Wound Consult: Initial 74 yr old male admitted to [facility] on 03/06/25- See progress notes and H&P for detailed history. Wound consult placed for coccyx/buttocks. Patient agreeable to assessment and photo documentation. Patient seen with direct care RN at bedside, able to stand for assessment. Reports pain to tailbone area. Coccyx/gluteal fold Etiology: coccyx stage 2 pressure injury Present on Admission with MASD component in skin fold Measurements: 1cm x 0.2cm x 0.1cm Wound Bed: moist pink partial thickness wounding over coccyx, intact pink skin surrounding in fold Drainage / Odor: none Patrizia wound: ? No Induration, Fluctuance or Warmth noted Pain: yes Goals of Treatment: ? triad/foam Recommendations: 1. Turn and Reposition every 2 hours and as needed for patient comfort. Use pillows or wedges to support off loading positions. 2. Off Load all bony prominences with use of pillows and heel boots if needed. Apply Preventative foams where needed. 3. Use waffle cushion when up to chair, limit sitting times to 1-2 hours 3. Monitor for incontinence and moisture control, use barrier creams when needed for prevention and treatment. 4. Provide adequate and supplemental nutrition. 5. Order or Continue low air loss mattress. 6. When applicable maintain blood glucose levels per Providers order. Coccyx/buttocks: Off Load Pressure with Q2 hr turns and use of pillows - Cleanse with PH balance spray or wipes, pat dry. ?Apply thin layer of Triad to wound bed. Do not remove all of paste between applications as this may cause further skin damage.? Cover with foam dressing to aid in off loading and protection from friction. Change every 3 days and PRN. Re-consult wound care Nurse for wound deterioration or wound changes.
[2025-03-07 12:00] VITALS: BP 154/67; PULSE 69; RESP 14; TEMP 36.1; O2SAT 95
--- NOTE | 2025-03-07 12:13 | PM.DS ---
DS: Providers Provider Date of admission: 03/06/25 13:34 Date of discharge: 03/07/25 Primary care physician: Lizzette Mendez PA-C Consults: 03/06/25 19:26 Consult to Wound Care Routine Consulting Provider: [facility] [place] Wound Care Management Reason for consultation: DULCE potter DS: Diagnosis Discharge Diagnosis (1) Acute kidney injury superimposed on CKD: Status: Acute DS: Summary Hospital Course Hospital Course: HPI per admitting provider:Chief Complaint: Leg swelling 74-year-old man with history of hypertension presented to the ER with complaints of bilateral lower extremity edema over the last week. He reports that this comes and goes and he sometimes wears Adrian stockings. He reports that he does have high sodium rich diet. He denied chest pain, shortness breath, nausea, vomiting, diarrhea. He reports that it started after he was sitting with his legs hanging trying to give his dog a bath. He also reports that he generally sits with his legs hanging down and does not elevate them enough. In the ER. Venous Doppler ultrasound was negative for DVT. Chest x-ray was negative for consolidation or effusion. Patient received a dose of IV Lasix in the ED. He will be placed on observation for management of bilateral lower extremity edema Discharge Summary Patient was admitted to the general medical floor for management of one week of intermittent bilateral lower extremity edema, likely exacerbated by dependent positioning and high-sodium diet; he denied cardiopulmonary or gastrointestinal symptoms. ED evaluation showed negative venous Dopplers for DVT and a clear chest X-ray, he received IV Lasix with partial improvement. And was admitted for further management of lower extremity edema, acute kidney injury on CKD stage 3, and transaminitis of unclear etiology. BNP was 881 without clinical signs of heart failure; prior echocardiogram (Apr 2023) showed EF 65?75% with no wall motion abnormalities. Albumin was 3.3. Management included IV Lasix, UA for protein was negative, repeat echocardiogram was wnl, and held amlodipine due to possible medication related edema discontinue on discharge. QAUILINO was mildly above baseline; LFTs monitered and Abdominal CT performed for evaluation of transaminitis showed a cirrhotic?appearing liver with splenomegaly and a moderate amount of ascites. The liver demonstrated heterogeneous attenuation with several low attenuation areas concerning for possible masses versus fatty infiltration; follow-up liver MRI was recommended outpatient. Gallstones were present. Additional findings included a 3 mm nonobstructing right renal stone and a possible tiny 1 mm nonobstructing left renal stone, as well as bilateral low attenuation renal lesions that may represent cysts but were not fully characterized. Diverticulosis of the colon was also noted. Diabetes was managed with sliding scale insulin and ADA diet. Subclinical hypothyroidism noted with normal free T4. Normocytic anemia stable compared to prior values, no indication for transfusion. BMI 36.5; weight management counseling provided. RAHDA managed with CPAP. DVT prophylaxis with Lovenox. He is hemodynamically stable and medically appropriate for discharge home. No new medications discontinued Amlodipine Time Attestation Discharge Coordination Time (in mins): 45 Quality: Safe Use of Opioids Does Pt have an Active Cancer Diagnosis on the Problem List?: No Quality: Stroke Does the patient have a stroke diagnosis?: No Physical Exam Exam: Exam: Appearing in no acute distress head is normocephalic atraumatic eyes pupils are PERRLA sclera is anicteric mouth throat mucous membranes are intact and moist neck is supple no lymphadenopathy, no JVD noted lung sounds are clear to auscultation heart regular rate rhythm, clear S1, S2 positive bowel sounds, abdomen is soft, nontender neuro patient is alert x3, no focal deficits Vital Signs: Vital Signs: Last Vital Signs Temp 98.9 F 03/07/25 08:00 Pulse 64 03/07/25 08:23 Resp 16 03/07/25 08:00 BP 140/65 H 03/07/25 08:23 Pulse Ox 95 03/07/25 08:00 O2 Del Method Room Air 03/07/25 08:00 BMI result Body Mass Index 36.5 DS: Data Data Completed and Pending Labs on day of discharge: Laboratory Results - last 24 hr 03/06/25 03/06/25 03/06/25 13:50 16:22 19:42 WBC RBC Hgb Hct MCV MCH MCHC RDW Plt Count MPV Absolute Nucleated RBC Nucleated RBC % (auto) Sodium Potassium Chloride Carbon Dioxide Anion Gap BUN Creatinine Estim Creat Clear Calc Estimated GFR POC Glucose 104 162 H Random Glucose Calcium Total Bilirubin Direct Bilirubin AST ALT Alkaline Phosphatase NT-Pro-B Natriuret Pep Total Protein Albumin Urine Color Yellow Urine Appearance Clear Urine pH 5.5 Ur Specific Hamilton <= 1.005 Urine Protein Negative Urine Glucose (UA) Negative Urine Ketones Negative Urine Blood Negative Urine Nitrite Negative Ur Leukocyte Esterase Negative 12/03/07/25 03/07/25 21:09 05:28 07:13 WBC 4.9 RBC 3.23 L Hgb 9.5 L Hct 30.5 L MCV 94.4 MCH 29.4 MCHC 31.1 RDW 16.1 H Plt Count 229 MPV 10.2 Absolute Nucleated RBC 0.000 Nucleated RBC % (auto) 0.0 Sodium 140 Potassium 4.4 Chloride 105 Carbon Dioxide 29 Anion Gap 10 L BUN 22 H Creatinine 1.82 H Estim Creat Clear Calc 46.6 Estimated GFR 37 POC Glucose 105 Random Glucose 100 Calcium 8.6 Total Bilirubin 1.1 H Direct Bilirubin 0.6 H AST 116 H ALT 33 Alkaline Phosphatase 416 H NT-Pro-B Natriuret Pep 910.6 H Total Protein 6.8 Albumin 3.0 L Urine Color Urine Appearance Urine pH Ur Specific Hamilton Urine Protein Urine Glucose (UA) Urine Ketones Urine Blood Urine Nitrite Ur Leukocyte Esterase Discharge Plan Discharge Anticipated Discharge Date/Time: 03/07/25 08:52 Patient Disposition: Home, Self-Care Discharge Diagnosis: Dependent leg edema AQUILINO Referrals: Lizzette Mendez PA-C [Primary Care Provider, Internal Medicine] - 1 Week Discharge Medications: Continued pravastatin 40 mg tablet 40 mg PO DAILY glipizide 10 mg tablet extended release 24hr 20 mg PO DAILY omeprazole 40 mg capsule,delayed release(DR/EC) 40 mg PO DAILY metformin 1,000 mg tablet 1,000 mg PO BID Novolin N NPH U-100 Insulin 100 unit/mL suspension 60 unit SUBCUT DAILY Novolin N NPH U-100 Insulin 100 unit/mL suspension 30 unit SUBCUT DAILY@1800 gabapentin 300 mg capsule 900 mg PO BEDTIME aspirin 81 mg Tablet 81 mg PO DAILY hydrochlorothiazide 25 mg tablet 25 mg PO DAILY metoprolol succinate 25 mg tablet extended release 24 hr 25 mg PO DAILY losartan 100 mg tablet 100 mg PO DAILY fluoxetine 20 mg capsule 60 mg PO DAILY Discontinued amlodipine 10 mg tablet 10 mg PO DAILY Discharge Orders: Discharge Order (Routine); Ordered 03/07/25 Ordered By: Celestina Galvan Diet: Advance to usual diet Activity on Discharge: As tolerated Stand Alone Forms: Patient Portal Discharge page Print Language: Malay Other Ambulatory Orders: Basic Metabolic Panel (Routine) Timeframe: 1 Week Facility: [facility] - Location: Laboratory Ordered By: Celestina Galvan Care Plan Goals: Your amlodipine was stopped given your leg edema, this medication can cause swelling in the lower extremities Elevate extremities, use Adrian stockings, avoid foods high in sodium including deli meats, can soups. Opt for low-sodium options when available Check labs for your kidney function in 1 week Health Concerns: Dependent leg edema AQUILINO Plan of Treatment: Follow up with primary care provider as needed Take all medications as prescribed Assessment: See discharge summary Patient Instructions: Leg Edema (ED) Discharge Date/Time: 03/07/25 12:53
[2025-03-07 12:17] LABS: Glucose, Whole Blood 162 mg/dL (60-115)
--- NOTE | 2025-03-07 12:30 | MHC.CM.PN ---
Mayer 03/07/25 Patient lives alone independent with all functional mobility. DC today to home self care. Patient will self transport home.
== END 2025-03-07 12:53 | disposition home or self-care (01) ==
LOC: HO.ED 11:54 → HO.EDOVER 13:39 → HO.S3 15:02
PROVIDERS: Admitting Provider Nurse Practitioner Acute Care; Emergency Provider Emergency Medicine; PCP Physician Assistant Medical; Visit Provider Nurse Practitioner Acute Care
DX: R60.0 Localized edema (principal); N17.9 Acute kidney failure, unspecified; I12.9 Hypertensive chronic kidney disease with stage 1 through stage 4 chronic kidney disease, or unspecified chronic kidney disease; E11.22 Type 2 diabetes mellitus with diabetic chronic kidney disease; N18.9 Chronic kidney disease, unspecified; M79.662 Pain in left lower leg; M79.661 Pain in right lower leg; Z23 Encounter for immunization; R74.01 Elevation of levels of liver transaminase levels; K21.9 Gastro-esophageal reflux disease without esophagitis; E78.5 Hyperlipidemia, unspecified; D64.9 Anemia, unspecified; Z79.899 Other long term (current) drug therapy; Z79.82 Long term (current) use of aspirin; Z79.4 Long term (current) use of insulin; Z79.84 Long term (current) use of oral hypoglycemic drugs
CPT/HCPCS: 36415; 71045; 74176; 80048; 80053; 80076; 81003; 82565; 82947; 83735; 83880; 84439; 84443; 85025; 85027; 90471; 90656; 93005; 93306; 93970; 96372; 96374; 96376; 99221; 99285; J1650; J1938; Q9957

== ENCOUNTER → 2025-03-06 06:17 | Outpatient (BNV) | payer MEDICARE, SELFPAY | PROVIDERS: Emergency Provider Emergency Medicine; PCP Physician Assistant Medical; Visit Provider Radiology Diagnostic Radiology | DX: N20.0 Calculus of kidney (principal); R16.1 Splenomegaly, not elsewhere classified; R22.43 Localized swelling, mass and lump, lower limb, bilateral; M79.661 Pain in right lower leg; M79.662 Pain in left lower leg; Z03.89 Encounter for observation for other suspected diseases and conditions ruled out | CPT/HCPCS: 71045; 74176; 93970 ==

== ENCOUNTER → 2025-03-06 06:17 | Outpatient (BNV) | payer MEDICARE, SELFPAY | PROVIDERS: Admitting Provider Nurse Practitioner Acute Care; Emergency Provider Emergency Medicine; PCP Physician Assistant Medical; Visit Provider Internal Medicine | DX: R60.0 Localized edema (principal) | CPT/HCPCS: 93010 ==

== ENCOUNTER 2025-03-06 13:34 | Outpatient (BNV) | payer MEDICARE, SELFPAY | END 2025-03-07 07:00 | PROVIDERS: Admitting Provider Nurse Practitioner Acute Care; Emergency Provider Emergency Medicine; PCP Physician Assistant Medical; Visit Provider Internal Medicine | DX: I51.89 Other ill-defined heart diseases (principal); I35.0 Nonrheumatic aortic (valve) stenosis | CPT/HCPCS: 93306 ==

== ENCOUNTER → 2025-03-06 13:34 | Outpatient (BNV) | payer MEDICARE, SELFPAY | PROVIDERS: Admitting Provider Nurse Practitioner Acute Care; Emergency Provider Emergency Medicine; PCP Physician Assistant Medical; Visit Provider Nurse Practitioner Acute Care | DX: N17.9 Acute kidney failure, unspecified (principal); N18.30 Chronic kidney disease, stage 3 unspecified | CPT/HCPCS: 99239 ==